=== PATIENT | female | born 1970 | race Caucasian/White ===

== ENCOUNTER → 2017-01-04 | Outpatient (CLI) | payer OTHER | LOC: BRMIMAGING 12:45 | PROVIDERS: ATTEND Family Medicine | DX: Z12.31 Encounter for screening mammogram for malignant neoplasm of breast (principal) | CPT/HCPCS: G0202 ==

== ENCOUNTER → 2018-05-25 | Outpatient (CLI) | payer OTHER | LOC: BRMIMAGING 13:05 | PROVIDERS: ATTEND Family Medicine | DX: Z12.31 Encounter for screening mammogram for malignant neoplasm of breast (principal); N94.6 Dysmenorrhea, unspecified | CPT/HCPCS: 76856-PO ==